=== PATIENT | male | born 1960 | race Caucasian/White ===

== ENCOUNTER → 2016-05-16 | Outpatient (CLI) | payer BC ==
[~2016-05-16] MED LIST: AMBIEN 10MG10 MG PO; ANDRODERM2.5 MG/24 TD; ANTIVERT 25MG25 MG PO; BENADRYL25 M2 PO; CELEBREX 200MG200 MG PO; FLEXERIL 1010 MG/TAB PO; GLUCOPHAGE500 MG/TAB PO; HORIZANT600 MG PO; KLOR-CON SPRIN10 MEQ PO; LASIX 20MG TABL20 MG PO; MASON NATURAL1200 MG PO; MONOPRIL20 MG PO; MULTI VITAMINS1 TAB PO; NORVASC 10MG10 MG PO; PRINIVIL20 MG PO; TESTOSTERONE; TYLENOL 500MG500 MG PO; ZANTAC 7575 MG PO; ZOFRAN ODT4 MG PO
== END ==
LOC: MHCPAIN 09:29
DX: G89.29 Other chronic pain (principal); M47.817 Spondylosis without myelopathy or radiculopathy, lumbosacral region; M54.16 Radiculopathy, lumbar region; M53.3 Sacrococcygeal disorders, not elsewhere classified
CPT/HCPCS: G0463

== ENCOUNTER → 2016-05-17 | Outpatient (CLI) | payer BC | LOC: MHCPAIN 12:39 | DX: M47.817 Spondylosis without myelopathy or radiculopathy, lumbosacral region (principal) ==

== ENCOUNTER → 2016-05-24 | Outpatient (CLI) | payer BC | LOC: MHCPAIN 13:37 | DX: M47.817 Spondylosis without myelopathy or radiculopathy, lumbosacral region (principal) ==

== ENCOUNTER → 2016-05-28 | Outpatient (CLI) | payer BC | LOC: MHCPAIN 08:32 | DX: G89.29 Other chronic pain (principal); M47.817 Spondylosis without myelopathy or radiculopathy, lumbosacral region; M54.16 Radiculopathy, lumbar region | CPT/HCPCS: G0463 ==

== ENCOUNTER → 2016-06-07 | Outpatient (CLI) | payer BC | LOC: MHCPAIN 11:06 | DX: M47.817 Spondylosis without myelopathy or radiculopathy, lumbosacral region (principal) ==

== ENCOUNTER → 2016-06-18 | Outpatient (CLI) | payer BC | LOC: MHCPAIN 09:24 | DX: G89.29 Other chronic pain (principal); M47.27 Other spondylosis with radiculopathy, lumbosacral region | CPT/HCPCS: G0463 ==

== ENCOUNTER → 2016-07-05 | Outpatient (CLI) | payer BC | LOC: MHCPAIN 09:48 | DX: M47.817 Spondylosis without myelopathy or radiculopathy, lumbosacral region (principal) ==

== ENCOUNTER → 2016-07-16 | Outpatient (CLI) | payer BC | LOC: MHCPAIN 08:53 | DX: G89.29 Other chronic pain (principal); M47.27 Other spondylosis with radiculopathy, lumbosacral region; M48.06 Spinal stenosis, lumbar region | CPT/HCPCS: G0463 ==

== ENCOUNTER 2016-08-02 23:47 | Emergency (ER) | payer BC ==
[~2016-08-02] VITALS: Ht 185.4 cm; Wt 125.0 kg
[~2016-08-02 23:47] MED LIST changes: -ANTIVERT 25MG25 MG PO; -FLEXERIL 1010 MG/TAB PO; -ZOFRAN ODT4 MG PO
[2016-08-02 23:48] VITALS: TEMP 98.1
[2016-08-02] MEDS ORDERED: FLEXERIL 1010 MG/TAB PO (23:53)
[2016-08-03 00:04] LABS: BASO % 0.1 % (0.0-2.0); GRAN # 7.5 (1.4-6.5); GRAN % 92.3 % (42.2-75.2); HEMATOCRIT 46.6 % (42.0-52.0); HEMOGLOBIN 16.2 g/dl (13.5-18.0); LYMPH # 0.5 (1.2-3.4); LYMPH % 5.9 % (20.0-51.0); MEAN CELL VOLUME 89 fl (80.0-100.0); MEAN CORPUSCULAR HEMOGLOBIN 31 pg (27.0-31.0); MEAN CORPUSCULAR HGB CONC 35 g/dl (33.0-37.0); MEAN PLATELET VOLUME 10.5 fl (7.4-10.4); MONO # 0.1 (0.1-0.6); PLATELET COUNT 191 K/mm3 (130-400); RED BLOOD COUNT 5.21 M/mm3 (4.20-5.60); REDCELL DISTRIBUTION WIDTH-CV 11.9 % (11.5-14.5); WHITE BLOOD COUNT 8.1 K/mm3 (4.8-10.8)
[2016-08-03 00:14] LABS: ALANINE AMINOTRANSFERASE 38 U/L (21-72); ALBUMIN 4.5 gm/dL (3.5-5.0); ALKALINE PHOSPHATASE 46 U/L (50-136); ANION GAP 15 mmol/L (7-16); BILIRUBIN,TOTAL 1.1 mg/dL (0.0-1.0); BLOOD UREA NITROGEN 17 mg/dL (9-20); CALCIUM 9.4 mg/dL (8.4-10.2); CARBON DIOXIDE 23 mmol/L (22-30); CHLORIDE 100 mmol/L (98-107); CREATININE, serum 0.98 mg/dL (0.66-1.25); GLUCOSE 220 mg/dL (74-106); MAGNESIUM 1.9 mg/dL (1.6-2.3); PHOSPHOROUS 1.2 mg/dL (2.5-4.5); POTASSIUM 4.2 mmol/L (3.4-5.0); SODIUM 138 mmol/L (137-145); TOTAL PROTEIN 7.4 gm/dL (6.4-8.2)
[2016-08-03 00:27] LABS: B-TYPE NATRIURETIC PEPTIDE 32 pg/mL (0-125)
[2016-08-03 00:31] LABS: TROPONIN-I < 0.012 ng/mL (0.000-0.034)
[2016-08-03] MEDS ORDERED: ZOFRAN ODT4 MG PO (02:17)
[2016-08-03] MEDS ORDERED: ANTIVERT 25MG25 MG PO (02:17)
[2016-08-03 02:26] VITALS: BP 138/99; PULSE 102
== END 2016-08-03 02:28 | disposition home or self-care (01) ==
LOC: COL.ER 23:47
PROVIDERS: Emergency Medicine
DX: R42 Dizziness and giddiness (principal); E11.9 Type 2 diabetes mellitus without complications; I10 Essential (primary) hypertension; G47.33 Obstructive sleep apnea (adult) (pediatric); R06.00 Dyspnea, unspecified; R11.0 Nausea; R00.0 Tachycardia, unspecified; Z79.84 Long term (current) use of oral hypoglycemic drugs
CPT/HCPCS: J2405; J7030; Q9967

== ENCOUNTER → 2016-08-02 | Outpatient (CLI) | payer BC | LOC: MHCPAIN 09:27 | DX: M54.16 Radiculopathy, lumbar region (principal) ==

== ENCOUNTER → 2016-09-03 | Outpatient (CLI) | payer BC ==
[~2016-09-03] MED LIST changes: +ANTIVERT 25MG25 MG PO; +FLEXERIL 1010 MG/TAB PO; +ZOFRAN ODT4 MG PO
== END ==
LOC: MHCPAIN 09:06
DX: G89.29 Other chronic pain (principal); M47.817 Spondylosis without myelopathy or radiculopathy, lumbosacral region; M54.16 Radiculopathy, lumbar region; M53.3 Sacrococcygeal disorders, not elsewhere classified
CPT/HCPCS: G0463

== ENCOUNTER 2016-10-22 09:45 | Outpatient (RCR) | payer BC | END 2016-10-25 13:54 | LOC: WSPT 09:45 | DX: M53.3 Sacrococcygeal disorders, not elsewhere classified (principal); M47.817 Spondylosis without myelopathy or radiculopathy, lumbosacral region; M51.36 Other intervertebral disc degeneration, lumbar region ==

== ENCOUNTER → 2016-12-17 | Outpatient (CLI) | payer BC | LOC: MHCPAIN 09:03 | DX: G89.29 Other chronic pain (principal); M47.27 Other spondylosis with radiculopathy, lumbosacral region; M54.16 Radiculopathy, lumbar region; M53.3 Sacrococcygeal disorders, not elsewhere classified | CPT/HCPCS: G0463 ==

== ENCOUNTER → 2017-02-26 | Outpatient (CLI) | payer BC | LOC: MHCPAIN 09:41 | DX: G89.29 Other chronic pain (principal); M47.27 Other spondylosis with radiculopathy, lumbosacral region; M53.3 Sacrococcygeal disorders, not elsewhere classified | CPT/HCPCS: G0463 ==

== ENCOUNTER → 2017-02-28 | Outpatient (CLI) | payer BC | LOC: MHCPAIN 10:28 | DX: M47.27 Other spondylosis with radiculopathy, lumbosacral region (principal) | CPT/HCPCS: J1100; J2250; J3010; Q9967 ==

== ENCOUNTER → 2017-04-01 | Outpatient (CLI) | payer BC | LOC: MHCPAIN 09:38 | DX: G89.29 Other chronic pain (principal); M47.27 Other spondylosis with radiculopathy, lumbosacral region; M53.3 Sacrococcygeal disorders, not elsewhere classified | CPT/HCPCS: G0463 ==

== ENCOUNTER → 2017-04-25 | Outpatient (CLI) | payer BC | LOC: MHCPAIN 10:04 | DX: M47.817 Spondylosis without myelopathy or radiculopathy, lumbosacral region (principal); M53.3 Sacrococcygeal disorders, not elsewhere classified | CPT/HCPCS: G0260; J1040; J2250; J3010; Q9967 ==

== ENCOUNTER → 2017-05-27 | Outpatient (CLI) | payer BC | LOC: MHCPAIN 09:35 | DX: G89.29 Other chronic pain (principal); M47.817 Spondylosis without myelopathy or radiculopathy, lumbosacral region; M54.16 Radiculopathy, lumbar region; M53.3 Sacrococcygeal disorders, not elsewhere classified; M48.061 Spinal stenosis, lumbar region without neurogenic claudication | CPT/HCPCS: G0463 ==

== ENCOUNTER → 2018-01-20 | Outpatient (CLI) | payer BC | LOC: MHCPAIN 10:14 | DX: G89.29 Other chronic pain (principal); M47.817 Spondylosis without myelopathy or radiculopathy, lumbosacral region; M54.16 Radiculopathy, lumbar region; M53.3 Sacrococcygeal disorders, not elsewhere classified | CPT/HCPCS: G0463 ==

== ENCOUNTER → 2018-01-27 | Outpatient (CLI) | payer BC | LOC: MHCPAIN 08:00 | DX: M47.817 Spondylosis without myelopathy or radiculopathy, lumbosacral region (principal); M54.16 Radiculopathy, lumbar region | CPT/HCPCS: J1100; Q9967 ==

== ENCOUNTER → 2018-03-03 | Outpatient (CLI) | payer BC | LOC: MHCPAIN 09:04 | DX: G89.29 Other chronic pain (principal); M47.817 Spondylosis without myelopathy or radiculopathy, lumbosacral region; M54.16 Radiculopathy, lumbar region; M53.3 Sacrococcygeal disorders, not elsewhere classified | CPT/HCPCS: G0463 ==

== ENCOUNTER 2019-03-29 09:16 | Emergency (ER) | payer BC ==
[~2019-03-29] VITALS: Ht 185.4 cm; Wt 122.7 kg
[2019-03-29 09:24] VITALS: TEMP 98
[2019-03-29] MEDS ORDERED: DELATESTRYL200 MG/ML IM (10:24)
[2019-03-29] MEDS ORDERED: PREVIDENT5000PLUS DT (10:25)
[2019-03-29] MEDS ORDERED: TYLENOL 8 HR PO (10:26)
[2019-03-29 11:53] VITALS: BP 142/101; PULSE 89
== END 2019-03-29 11:53 | disposition home or self-care (01) ==
LOC: COL.ER 09:16
DX: H43.12 Vitreous hemorrhage, left eye (principal); E11.9 Type 2 diabetes mellitus without complications; I10 Essential (primary) hypertension; Z88.0 Allergy status to penicillin; Z79.84 Long term (current) use of oral hypoglycemic drugs

== ENCOUNTER 2020-03-22 11:53 | Day surgery (SDC) | payer BC ==
[2020-03-22] VITALS (8 sets, daily range): BP systolic 123–147; BP diastolic 75–93; PULSE 94–108; TEMP 97.9–98.5
[~2020-03-22] VITALS: Ht 182.9 cm; Wt 126.3 kg
[~2020-03-22 11:53] MED LIST changes: +DELATESTRYL200 MG/ML IM; +PREVIDENT5000PLUS DT; +TYLENOL 8 HR PO
[2020-03-22] MEDS ORDERED: SF 1.1% GEL1.1% DT (14:13)
[2020-03-22] MEDS ORDERED: GLUCOPHAGE500 MG/TAB PO (14:14)
[2020-03-22] MEDS ORDERED: MONOPRIL20 MG PO (14:15)
[2020-03-22] MEDS ORDERED: NORVASC 10MG10 MG PO (14:15)
[2020-03-22] MEDS ORDERED: AMBIEN 10MG10 MG PO (14:16)
[2020-03-22] MEDS ORDERED: DAILY MULTIPLE1 T18 PO (14:18)
[2020-03-22] MEDS ORDERED: GRALISE600 MG PO (14:18)
[2020-03-22] MEDS ORDERED: CELEBREX 200MG200 MG PO (14:19)
[2020-03-22] MEDS ORDERED: MASON NATURAL1200 MG PO (14:19)
[2020-03-22] MEDS ORDERED: BENADRYL25 M2 PO (14:21)
[2020-03-22] MEDS ORDERED: DEPO-TESTOS200 MG/M1 IM (14:23)
[2020-03-22] MEDS ORDERED: FLEXERIL5 MG PO (14:24)
[2020-03-22] MEDS ORDERED: CPAP INH (14:25)
[2020-03-22] MEDS ORDERED: NORCO 325 MG-51 TAB PO (15:26)
--- NOTE | 2020-03-22 17:15 | NUR ---
Patient returns to room 8 per cart from PACU accompanied by Laura FONTENOT and is arouses to verbal stimuli. Temp 97.8 and sats 96% on 2L per nasal cannula. 4x4 dressing on abdomen dry. Siderails up x2 and call light in reach. Allowed to rest.
--- NOTE | 2020-03-22 17:30 | NUR ---
More awake and sipping on Sprite.
--- NOTE | 2020-03-22 17:45 | NUR ---
States that he feels dizzy from the pain medications. Encouraged to rest. Remains on oxygen at 2L per nasal cannula. Tolerated sips of Sprite.
--- NOTE | 2020-03-22 18:00 | NUR ---
Resting with eyes closed and allowed to rest.
--- NOTE | 2020-03-22 18:25 | NUR ---
In [facility] [place] [facility] to visit with pt. Pt stating his lower back hurts, that he needs to get some food in his stomach to keep his blood sugar up. Pt not clear on what he would like to eat. A muffin, crackers, and peanut butter brought for pt as well as water. Pt feels like the Sprite is too sweet for now.
--- NOTE | 2020-03-22 18:30 | NUR ---
Pt much more irritated now and finding it difficult to speak to this RN. Pt is able to voice that he needs food. A tio cracker is placed in the hand of the pt. Pt seems not able to eat the cracker even though he states he needs food. This RN explains that I'm happy to help with whatever is needed for the pt. The pt appears to be wanting to say something, but does not appear to be able. Pt mentions blood sugar. Finger stick glucose checked with a result of 146. Pt seems very dissatisfied with his situation and describes himself as now having a panic attack.
--- NOTE | 2020-03-22 18:36 | NUR ---
Pt continues to be very frustrated and frequently using cuss words. Pt still not able to voice what he's thinking. Pt then states that he needs his . This RN calls his and places her on speaker phone for the pt. This seems to irritate the pt even further. The pt's asks if she can come see her . Due to the situation, this RN agrees, and the pt's is brought to the room. She encourages him to slow down his breathing. The pt speaks to her to try to explain his situation. He remains irritated and states that neither his nor I understand what's happening with him, and he attempts to go into great detail about his current situation.
--- NOTE | 2020-03-22 18:45 | NUR ---
After some guidance from the pt's , the pt is now less irritated. He is boosted in bed so that he bends appropriately at his waist. He again explains his panic attacks and again goes into great detail about his situation.
--- NOTE | 2020-03-22 19:00 | NUR ---
The pt is still concerned about taking any food due to the possibility of throwing up. The pt is also frustrated that the medicines he should have had by this time, he hasn't had. These are medicines he takes at home. The pt also voices frustration that he never should have scheduled his surgery in the afternoon so that he would be without food for so long. Difficult dialogue continues between the pt and his . The pt is able to explain himself much better than previously. The pt also voices concern about messing up the hernia repair due to his recent muscle straining while having the panic attack. This RN encourages him that the surgeons do a strong repair on these hernias.
--- NOTE | 2020-03-22 19:22 | NUR ---
Pt agreeable to sit up so that he can attempt to eat something. Pt's remains in room. Pt again speaking in great detail and giving examples of illustrations of his current condition and dilemmas. Pt takes very small amounts of food he brought himself--crackers and water.
--- NOTE | 2020-03-22 20:04 | NUR ---
After extensive dialogue with the pt regarding urinating before he leaves, and the pt stating among other things that he has a "shy bladder" and basically nothing will help him urinate now, Dr. Moyer is called, and permission is granted from the doctor to discharge the pt without him urinating. The pt's existing physical and mental condition is explained to Dr. Moyer.
--- NOTE | 2020-03-22 20:15 | NUR ---
Discharge instructions given to patient and his . All questions answered to their satisfaction. Handed to them are a thank you card, discharge instructions, and diagnosis information.
--- NOTE | 2020-03-22 20:20 | NUR ---
Pt transferred out of hospital via wheelchair and this RN assisting to private vehicle driven by .
== END 2020-03-22 20:20 | disposition home or self-care (01) ==
LOC: SDCO 11:53
DX: K42.0 Umbilical hernia with obstruction, without gangrene (principal); E13.42 Other specified diabetes mellitus with diabetic polyneuropathy; E13.21 Other specified diabetes mellitus with diabetic nephropathy; G47.33 Obstructive sleep apnea (adult) (pediatric); I10 Essential (primary) hypertension; E29.1 Testicular hypofunction; E66.9 Obesity, unspecified; Z20.828 Contact with and (suspected) exposure to other viral communicable diseases; Z79.899 Other long term (current) drug therapy; Z68.38 Body mass index [BMI] 38.0-38.9, adult; Z79.84 Long term (current) use of oral hypoglycemic drugs; Z79.1 Long term (current) use of non-steroidal anti-inflammatories (NSAID); Z88.0 Allergy status to penicillin
CPT/HCPCS: C1781; J0330; J0690; J1100; J1170; J2175; J2405; J2704; J3010; J7030; J7120